=== PATIENT | female | born 1975 | race Caucasian/White ===

== ENCOUNTER 2023-02-28 07:23 | Day surgery (SDC) | payer OTHER, SELFPAY ==
--- NOTE | 2023-02-28 | GASB_PTH ---
PATIENT: ERNESTINA CRAIG LOC: EN U#:[id number] AGE/SX: 47/F ROOM: RE02/28/[address]: Dr. Mendel Alegre MD : 1975 BED: DIS: 02/28/2023 SPEC #: [id number] RECD: 02/28/23 11:44 STATUS: SARAH MCLEOD #: [id number] FERNY: 02/28/23 00:[address]: Mendel Alegre DEPT: SURGICAL PATHOLOGY RECD BY: Leonardo Lilly ENTERED: 02/28/23 11:45 SP TYPE: Gastric Bx OTHR DR: Dr. Augustine Hernandez DO Tissues: A - Duodenum, NOS B - Gastric mucous membrane C - Stomach, NOS D - Esophageal mucous membrane E - COLON BIOPSY Procedures: Special Stain Group II Surgery Specimen Level IV Alcian Blue/PAS (control) HEADER OPERATION: Colonoscopy, EGD PRE-OP DIAGNOSIS: GERD with esophagitis, constipation, screening TISSUE SUBMITTED: A - Duodenum biopsy, B - Antrum biopsy for H. pylori and path, C - Greater curvature polyp biopsy, D - Distal esophagus biopsy, E - Mid esophagus biopsy, F - Random colonic biopsy MICROSCOPIC DIAGNOSIS A. Duodenum, biopsy: No pathologic change. B. Gastric antrum, biopsy: Mild chronic inflammation. See comment. C. Greater curvature polyp, biopsy: Consistent with fundic gland polyp. D. Distal esophagus, biopsy: Fragments of benign gastroesophageal junctional mucosa. No evidence of goblet cell metaplasia. See comment. E. Mid esophagus, biopsy: Fragments of benign squamous mucosa. No evidence of inflammation. F. Colon, random biopsy: No pathologic change. AM:florencio 03/01/2023 COMMENT B. The results of immunohistochemistry for Helicobacter pylori will be reported separately ([id number]). D. Alcian blue/PAS stain with matched control supports the above diagnosis. MICROSCOPIC DESCRIPTION Slides are reviewed. GROSS DESCRIPTION A - Received in fixative is one container labeled with the patient's name and designated duodenum biopsy. The specimen consists of one irregular fragment of light phillips soft tissue that measures 0.5 x 0.3 x 0.1 cm. The specimen is totally submitted in one cassette. B - Received in fixative is one container labeled with the patient's name and designated antrum biopsy. The specimen consists of one irregular fragment of light phillips soft tissue that measures 0.3 x 0.3 x 0.1 cm. The specimen is totally submitted in one cassette. C - Received in fixative is one container labeled with the patient's name and designated greater curvature polyp biopsy. The specimen consists of one irregular fragment of light phillips soft tissue that measures 0.4 x 0.3 x 0.1 cm. The specimen is totally submitted in one cassette. D - Received in fixative is one container labeled with the patient's name and designated distal esophagus biopsy. The specimen consists of multiple irregular fragments of light phillips soft tissue that in aggregate measure 0.5 x 0.5 x 0.1 cm. The specimen is totally submitted in one cassette. E - Received in fixative is one container labeled with the patient's name and designated mid esophagus biopsy. The specimen consists of two irregular fragments of light phillips soft tissue that in aggregate measure 0.4 x 0.3 x 0.1 cm. The specimen is totally submitted in one cassette. F - Received in fixative is one container labeled with the patient's name and designated random colonic biopsy. The specimen consists of multiple irregular fragments of light phillips soft tissue that in aggregate measure 1.5 x 0.5 x 0.1 cm. The specimen is totally submitted in one cassette. / SJ:rg 02/28/2023 TC:5 CPT: 29089 x6, 20265
[2023-02-28] MEDS: Lactated Ringers 1,000 ML 15 ML IV (07:53)
[2023-02-28 07:56] VITALS: BP 94/51; PULSE 60; RESP 18; TEMP 36.5; O2SAT 100; BMI 21.8
[2023-02-28 08:17] LABS: Internal QC Validated? YES +Cl - CLEAR BKGD; Pregnancy, Serum, hCG Quali. NEGATIVE Negative
--- NOTE | 2023-02-28 08:21 | PCM.HP.BLA ---
History and Physical Date of Admission: 02/28/23 Visit Reasons: Gerd/[facility] Patient Discuss Upper Scope Chief Complaint: gerd Allergies Penicillins Allergy (Intermediate, Verified 01/25/23 14:23) Hives Medications fluoxetine 10 mg capsule 10 mg PO DAILY 01/25/23 [History Confirmed 01/25/23] omeprazole 40 mg capsule,delayed release 40 mg PO DAILY 01/25/23 [History Confirmed 01/25/23] thyroid (pork) 81.25 mg tablet 81.25 mg PO DAILY 01/25/23 [History Confirmed 01/25/23] HPI HPI HPI: 47-year-old female. She was not able to make a previous August 2022 appointment. Previous notes reflect 47-year-old female. She is returning for evaluation of gastroesophageal reflux disease. I have notes dating back to March 23, 2012 where I performed a esophagogastroduodenoscopy with distal esophageal biopsies and Diamond probe placement. I also did a snare polypectomy of gastric fundic polyps x3. I demonstrated a hiatal hernia with mild distal esophagitis. Gastric fundic polyps. The patient is being referred back at this time by Dr. Augustine Hernandez for ongoing surgical consultation and a written compromise surgical consult recommendations will return to her. Her gastroesophageal reflux disease symptoms have escalated greatly. She is also having palpitations She has severe constipation. Fiber makes her constipation worse and constipation makes her reflux worse. Then she cuts down on eating. Occasionally she needs to use enemas to move her bowels. She tries to eat a very healthy diet and enjoys fruits and vegetables. She notes that her mother has chronic constipation as well. The patient states that she has had an EKG and echocardiogram and wore a heart month monitor for a couple weeks with no definitive diagnosis regarding her palpitations. She also will have some lightheaded fainting spells and has been diagnosed with POTS. MiraLAX tends to make her bloat so she does not use that for her bowels. She has had no abdominal operations ROS General General: Yes weight change; No appetite, fatigue, colon cancer, breast cancer or weakness HEENT HEENT: No difficulty swallowing, eye injury, eye surgery, swollen glands or hoarseness Endo Endocrine: No thyroid disease, diabetes mellitus, thyroid cancer, Hair loss, heat intolerance or cold intolerance Skin Skin: No rash or changing moles Breast Breast: No left breast lump, right breast lump, nipple discharge, breast pain, abnormal mammogram, abnormal US or breast enlargement Musc Musculoskeletal: Yes back problems; No arthritis, rheumatoid arthritis, gout or joint pain Cardio Cardiovascular: No murmur, pacemaker, heart disease, atrial fibrillation, high blood pressure, heart attack, heart stent, palpitations, shortness of breat with exertion or chest pain Psych Psychiatric: Yes anxiety; No depression or hearing voices Resp Respiratory: Yes shortness of breath, Yes sleep apnea, No cough, No COPD, Yes asthma, No emphysema and No wheezing Gastro Gastrointestinal: No abdominal pain, No nausea or vomiting, No diarrhea, Yes constipation, No blood in stool, Yes acid reflux, No hemorrhoids, No ulcers, No gallbladder problem and No black,tarry stools Zoran Hematologic: No blood thinners, No blood disorders, No bleeding, No anemia and No blood clots Neuro Neurologic: No system reviewed and no additional complaints, except as documented, No as per HPI, No abnormal gait, No abnormal hearing, No abnormal movements, No abnormal speech, No behavioral changes, No burning sensations, No confusion, No convulsions, No disequilibrium, No dizziness, No localized weakness, No frequent falls, No headache(s), No lack of coordination, No loss of vision, No memory loss, No numbness, No other visual disturbances, No radicular pain, No restless legs, No sensory deficit, No syncope, No tingling, No tremor(s), No weakness and No other Exam Const General: cooperative and no acute distress [facility] Head: normal to inspection Eyes General: appearance normal, both eyes and all related structures Neck Neck: normal visual inspection Chest Chest palpation & inspection: normal inspection of the chest Resp Effort & Inspection: normal respiratory effort Auscultation: clear to auscultation bilaterally Cardio Rate: regular rate Rhythm: regular rhythm GI Inspection: normal to inspection Palpation: soft and no hepatosplenomegaly Musc Cervical Spine: normal cervical lordosis Neuro General: patient alert, patient awake and patient oriented x3 Extrem General: no calf tenderness Psych Appearance: grossly normal Assessment and Plan Assessment and Plan (1) GERD with esophagitis: Status: Acute Qualifiers: Esophagitis bleeding: without hemorrhage Qualified Code(s): K21.00 - Gastro-esophageal reflux disease with esophagitis, without bleeding (2) Constipation: Status: Acute Qualifiers: Constipation type: unspecified constipation type Qualified Code(s): K59.00 - Constipation, unspecified (3) Screening for intestinal cancer: Status: Acute Plan Intractable gastroesophageal reflux disease. Most recent upper endoscopy 2011. I definitively recommend that we perform an updated exam with possible biopsy if indicated. The patient has never had a colonoscopy. She has variable bowels but mostly constipation. I recommend to her colonoscopy with possible biopsy or polypectomy if indicated. She has had an opportunity to ask and have questions answered. We will schedule and try to expedite her care. I appreciate the opportunity of assisting with her surgical management. [id number] Paula Cehn Copy: Dr. Augustine Alegre M.D., F.A.C.S. I have examined the patient and the H&P has been reviewed. There are no clinical changes since date of exam. Mendel Alegre M.D., F.A.C.S.
--- NOTE | 2023-02-28 08:30 | IMM_PTH ---
PATIENT: ERNESTINA CRAIG LOC: EN U#:[id number] AGE/SX: 47/F ROOM: RE02/28/[address]: Dr. Mendel Alegre MD : 1975 BED: DIS: 02/28/2023 SPEC #: [id number] RECD: 02/28/23 12:35 STATUS: SARAH REMeeta #: [id number] FERNY: 02/28/23 08:[address]: Mendel Alegre DEPT: IMMUNOHISTOCHEMISTRY RECD BY: Jerrica Duvall ENTERED: 02/28/23 12:35 SP TYPE: IMMUNO OTHR DR: Dr. Augustine Hernandez DO Tissues: B - Stomach, NOS Procedures: H Pylori (initial) PHYSICIAN & INSTITUTION [place] [address] SPECIMEN INFORMATION: Tissue Source: B - Antrum Clinical Info: GERD with esophagitis, constipation, screening Specimen Number: [id number] CPT code: 52263 METHODOLOGY: Deparaffinized sections of prefer/formalin-fixed tissue or PAP/DQ stained slides are incubated with monoclonal/polyclonal antibodies/oligonucleotide probes. Localization is made via biotin free immunoperoxidase method. Appropriate controls are performed and reacted as expected. Results on target cell population are indicated in the following table: RESULTS: ANTIBODY / CLONE RESULT Block B H Pylori (polyclonal) negative These tests were developed and their performance characteristics determined by [facility]. They may not have been cleared or approved by the U.S. Food and Drug Administration. The FDA has determined that such clearance or approval is not necessary. The above immunohistochemical/dualISH markers are ordered and reviewed by the Pathologist. INTERPRETATION: B. Antrum, biopsy: Negative for Helicobacter pylori organisms. AM:florencio 03/01/2023
[2023-02-28 09:40] VITALS: BP 94/51; BP 98/51; PULSE 68; RESP 16; TEMP 36.2; O2SAT 97
--- NOTE | 2023-02-28 09:41 | OP.EGD_ITS ---
Patient Name: Lyric Mitchell Procedure Date: 02/28/2023 9:06 AM Date of : 1975 Age: 47 Procedure: Upper GI endoscopy Indications: Gastro-esophageal reflux disease Providers: Mendel Alegre MD Referring MD: Augustine Hernandez Medicines: See the Anesthesia note for documentation of the administered medications Complications: No immediate complications. Procedure: Pre-Anesthesia Assessment: - Prior to the procedure, a History and Physical was performed, and patient medications and allergies were reviewed. The patient's tolerance of previous anesthesia was also reviewed. The risks and benefits of the procedure and the sedation options and risks were discussed with the patient. All questions were answered, and informed consent was obtained. Prior Anticoagulants: The patient has taken no anticoagulant or antiplatelet agents. ASA Grade Assessment: II - A patient with mild systemic disease. After reviewing the risks and benefits, the patient was deemed in satisfactory condition to undergo the procedure. After obtaining informed consent, the endoscope was passed under direct vision. Throughout the procedure, the patient's blood pressure, pulse, and oxygen saturations were monitored continuously. The Colonoscope was introduced through the mouth, and advanced to the second part of duodenum. The upper GI endoscopy was accomplished without difficulty. The patient tolerated the procedure well. Scope In: 9:10:12 AM Scope Out: 9:17:25 AM Total Procedure Duration Time 0 hours 7 minutes 13 seconds Findings: The mid esophagus was normal. Biopsies were taken with a cold forceps for histology. The Z-line was regular and was found 40 cm from the incisors. Biopsies were taken with a cold forceps for histology. Diffuse mildly erythematous mucosa without bleeding was found in the gastric antrum. Biopsies were taken with a cold forceps for histology. A few sessile polyps with no bleeding and no stigmata of recent bleeding were found on the greater curvature of the stomach. The polyp was removed with a cold biopsy forceps. Resection and retrieval were complete. The examined duodenum was normal. Biopsies were taken with a cold forceps for histology. Impression: - Normal mid esophagus. Biopsied. - Z-line regular, 40 cm from the incisors. Biopsied. - Erythematous mucosa in the antrum. Biopsied. - A few gastric polyps. Resected and retrieved. - Normal examined duodenum. Biopsied. Endings are all very minimal. Recommendation: - Discharge patient to home. - Resume previous diet. - Continue present medications. - Telephone my office for pathology results in 1 week. No specific findings that would seem to correlate with the patient's aggravated GERD symptoms. Could consider trial of Carafate. Procedure Code(s): --- Professional --- 81052, Esophagogastroduodenoscopy, flexible, transoral; with biopsy, single or multiple Diagnosis Code(s): --- Professional --- K31.89, Other diseases of stomach and duodenum K31.7, Polyp of stomach and duodenum K21.9, Gastro-esophageal reflux disease without esophagitis CPT copyright 2021 [employer]. All rights reserved. The codes documented in this report are preliminary and upon senior officer review may be revised to meet current compliance requirements. Mendel Alegre MD 02/28/2023 9:41:33 AM This report has been signed electronically. Number of Addenda: 0 Note Initiated On: 02/28/2023 9:06 AM
--- NOTE | 2023-02-28 09:41 | OP.CCLET_ITS ---
02/28/2023 Augustine Hernandez [address] [place] [address] Re : Upper GI endoscopy procedure for Lyric Paula Dear Dr. Hernandez This procedure was performed on Tuesday, February 28, 2023. My impressions and recommendations are as follows: Impressions : - Normal mid esophagus. Biopsied. - Z-line regular, 40 cm from the incisors. Biopsied. - Erythematous mucosa in the antrum. Biopsied. - A few gastric polyps. Resected and retrieved. - Normal examined duodenum. Biopsied. Endings are all very minimal. Recommendations : - Discharge patient to home. - Resume previous diet. - Continue present medications. - Telephone my office for pathology results in 1 week. No specific findings that would seem to correlate with the patient's aggravated GERD symptoms. Could consider trial of Carafate. My findings are described in the full procedure note, which is enclosed. If I can be of further assistance, please feel free to contact me at Doctor phone number(s): Work: . Sincerely, Mendel Alegre MD 02/28/2023 9:41:33 AM This report has been signed electronically.
--- NOTE | 2023-02-28 09:44 | OP.COLON_ITS ---
Patient Name: Lyric Mitchell Procedure Date: 02/28/2023 9:17 AM Date of : 1975 Age: 47 Procedure: Colonoscopy Indications: Screening for colorectal malignant neoplasm Providers: Mendel Alegre MD Referring MD: Augustine Hernandez Medicines: See the Anesthesia note for documentation of the administered medications Patient Profile: Last Colonoscopy: none. The patient's first colonoscopy is today. Complications: No immediate complications. Procedure: Pre-Anesthesia Assessment: - Prior to the procedure, a History and Physical was performed, and patient medications and allergies were reviewed. The patient's tolerance of previous anesthesia was also reviewed. The risks and benefits of the procedure and the sedation options and risks were discussed with the patient. All questions were answered, and informed consent was obtained. Prior Anticoagulants: The patient has taken no anticoagulant or antiplatelet agents. ASA Grade Assessment: II - A patient with mild systemic disease. After reviewing the risks and benefits, the patient was deemed in satisfactory condition to undergo the procedure. After I obtained informed consent, the scope was passed under direct vision. Throughout the procedure, the patient's blood pressure, pulse, and oxygen saturations were monitored continuously. The Colonoscope was introduced through the anus and advanced to the cecum, identified by appendiceal orifice and ileocecal valve. The colonoscopy was performed without difficulty. The patient tolerated the procedure well. The quality of the bowel preparation was good. The ileocecal valve and the appendiceal orifice were photographed. Scope In: 9:18:18 AM Scope Withdrawal Time 0 hours 9 minutes 30 seconds Scope Out: 9:35:10 AM Total Procedure Duration Time 0 hours 16 minutes 52 seconds Findings: Hemorrhoids were found on perianal exam. The colon (entire examined portion) was moderately tortuous. Advancing the scope required using manual pressure. Biopsies for histology were taken with a cold forceps from the entire colon for evaluation of microscopic colitis. Impression: - Hemorrhoids found on perianal exam. - Tortuous colon. - Biopsies were taken with a cold forceps from the entire colon for evaluation of microscopic colitis. Recommendation: - Discharge patient to home. - Resume previous diet. - Continue present medications. - Repeat colonoscopy in 10 years for screening purposes. - Telephone my office for pathology results in 1 week. Other than being tortuous the bowel otherwise appeared to be normal. Random biopsies were obtained. No visual evidence that would correlate with constipation and abdominal bloating. Procedure Code(s): --- Professional --- 37349, Colonoscopy, flexible; with biopsy, single or multiple Diagnosis Code(s): --- Professional --- Z12.11, Encounter for screening for malignant neoplasm of colon K64.9, Unspecified hemorrhoids Q43.8, Other specified congenital malformations of intestine CPT copyright 2021 [employer]. All rights reserved. The codes documented in this report are preliminary and upon thin film technician review may be revised to meet current compliance requirements. Mendel Alegre MD 02/28/2023 9:44:30 AM This report has been signed electronically. Number of Addenda: 0 Note Initiated On: 02/28/2023 9:17 AM
--- NOTE | 2023-02-28 09:44 | OP.CCLET_ITS ---
02/28/2023 Augustine Hernandez [address] [place] [address] Re : Colonoscopy procedure for Lyric Douglaser Dear Dr. Hernandez This procedure was performed on Tuesday, February 28, 2023. My impressions and recommendations are as follows: Impressions : - Hemorrhoids found on perianal exam. - Tortuous colon. - Biopsies were taken with a cold forceps from the entire colon for evaluation of microscopic colitis. Recommendations : - Discharge patient to home. - Resume previous diet. - Continue present medications. - Repeat colonoscopy in 10 years for screening purposes. - Telephone my office for pathology results in 1 week. Other than being tortuous the bowel otherwise appeared to be normal. Random biopsies were obtained. No visual evidence that would correlate with constipation and abdominal bloating. My findings are described in the full procedure note, which is enclosed. If I can be of further assistance, please feel free to contact me at Doctor phone number(s): Work: . Sincerely, Mendel Alegre MD 02/28/2023 9:44:30 AM This report has been signed electronically.
[2023-02-28 09:45] VITALS: BP 90/52; BP 94/51; PULSE 69; RESP 16; O2SAT 98
[2023-02-28 09:50] VITALS: BP 87/51; BP 94/51; PULSE 71; RESP 16; O2SAT 98
[2023-02-28 09:55] VITALS: BP 87/54; BP 94/51; PULSE 63; RESP 16; TEMP 36.2; O2SAT 100
[2023-02-28 10:10] VITALS: BP 94/51
== END 2023-02-28 10:22 | disposition home or self-care (01) ==
LOC: EN 07:27 → AC 07:27
PROVIDERS: Anesthesiology; PCP Student in an Organized Health Care Education/Training Program; Referring Provider Student in an Organized Health Care Education/Training Program; Visit Provider Surgery
PROC: 0DJD8ZZ Inspection of Lower Intestinal Tract, Via Natural or Artificial Opening Endoscopic (ICD-10-PCS; CPT 45378; principal; 2023-02-28 08:25)
DX: Z12.11 Encounter for screening for malignant neoplasm of colon (principal); K21.00 Gastro-esophageal reflux disease with esophagitis, without bleeding; K31.7 Polyp of stomach and duodenum; Q43.8 Other specified congenital malformations of intestine; K64.9 Unspecified hemorrhoids; K31.89 Other diseases of stomach and duodenum; F41.9 Anxiety disorder, unspecified; E07.9 Disorder of thyroid, unspecified; J45.909 Unspecified asthma, uncomplicated; Z79.899 Other long term (current) drug therapy
CPT/HCPCS: 43239; 45380; 84703; 88305; 88313; 88342; J7120; J2405